=== PATIENT | female | born 1970 | race African-American/Black ===

== ENCOUNTER 2020-12-07 23:15 | Emergency (ER) | payer OTHER ==
[~2020-12-07] VITALS: Ht 175.3 cm; Wt 79.4 kg
[2020-12-07 23:54] VITALS: BP 166/103
[2020-12-08] MEDS ORDERED: ceFAZolin 1GM/50ML 50 ML IV ONE (00:15)
[2020-12-08] MEDS ORDERED: HYDROcodone-ACET 5/325MG TAB PO ONE (00:45)
== END 2020-12-08 02:15 | disposition home or self-care (01) ==
LOC: ER 23:15
DX: S61.452A Open bite of left hand, initial encounter (principal); W54.0XXA Bitten by dog, initial encounter; Y93.89 Activity, other specified; Y92.89 Other specified places as the place of occurrence of the external cause; Y99.8 Other external cause status